=== PATIENT | male | born 1990 | race African-American/Black ===

== ENCOUNTER 2022-11-03 20:12 | Emergency (ER) | payer MEDICAID, OTHER ==
[~2022-11-03] VITALS: Ht 182.9 cm; Wt 90.7 kg
[2022-11-03 20:16] VITALS: BP 111/60; TEMP 98.6; O2SAT 100
--- NOTE | 2022-11-03 20:16 | NUR ---
bibra [id number] from gym c/o LEFT pinky injury from playing basketball.
[2022-11-03] MEDS ORDERED: oxyCODONE/APAP (5/325 MG) 1 UDTAB TABLET ONE (20:24)
[2022-11-03] MEDS ORDERED: oxyCODONE/APAP (5/325 MG) 1 UDTAB TABLET PO ONE (20:30)
--- NOTE | 2022-11-03 20:30 | NUR ---
garage door service technician at bedside.
[2022-11-03] MEDS ORDERED: LIDOCAINE 1% INJ 50 ML MDV IJ ONE ×2 (20:53→21:00)
--- NOTE | 2022-11-03 22:32 | NUR ---
Patient discharged to home in stable condition. Written and verbal after care instructions given. Patient verbalizes understanding of instruction.
== END 2022-11-03 22:32 | disposition home or self-care (01) ==
LOC: ER 20:13
DX: S63.287A Dislocation of proximal interphalangeal joint of left little finger, initial encounter (principal); Z60.2 Problems related to living alone; W22.8XXA Striking against or struck by other objects, initial encounter; Y93.67 Activity, basketball; Y92.89 Other specified places as the place of occurrence of the external cause; Y99.8 Other external cause status
CPT/HCPCS: 99284; 26770; 73140 ×2; J3490